=== PATIENT | male | born 1950 | race Caucasian/White ===

== ENCOUNTER 2020-03-02 21:06 | Inpatient (IN) | payer MEDICARE ==
[~2020-03-02] VITALS: Ht 200.7 cm; Wt 119.7 kg
[~2020-03-02 21:06] MED LIST: BACTRIM DS TAB1 EACH PO; CELEBREX 200 M200 MG PO; CIPROFLOXACIN500 M1 PO; COREG; FUROSEMIDE; GABAPENTIN; KLOR-CON; VICODIN
[2020-03-02 21:13] VITALS: BP 200/108
[2020-03-02 21:32] LABS: ABSOLUTE EOSINOPHILS 0.2 thou/uL (0.0-0.7); ABSOLUTE LYMPHOCYTES 0.8 thou/uL (0.8-5.3); ABSOLUTE MONOCYTES 0.7 thou/uL (0.0-1.2); ABSOLUTE NEUTROPHILS 3.6 thou/uL (1.6-8.1); BASOPHILS 0.8 %; EOSINOPHILS 3.9 %; HEMATOCRIT 39.8 % (42.0-52.0); HEMOGLOBIN 13.5 gm/dL (14.0-18.0); LYMPHOCYTES 15.2 %; MCH 34.7 pg (26.0-34.0); MCV 102.1 fL (80.0-100.0); MONOCYTES 13.3 %; MPV 7.6 fl. (7.2-11.1); NUCLEATED RBCS 0 /100WBC; PLATELET COUNT* 99 thou/uL (150-400); POLYS 66.8 %; RDW-CV 14.5 % (10.5-14.5); WBC 5.4 thou/uL (4.0-11.0)
[2020-03-02 21:42] LABS: CALCIUM 8.5 mg/dL (8.5-10.1); CREATININE 1.2 mg/dL (0.6-1.3); POTASSIUM 3.8 mmol/L (3.5-5.1)
[2020-03-02 21:46] LABS: APTT 26.1 Seconds (25.0-31.3); INR 1.1; PROTIME 11.4 Seconds (9.20-11.50)
[2020-03-02 21:53] LABS: ALBUMIN 2.7 g/dL (3.4-5.0); TOTAL BILIRUBIN 1.6 mg/dL (<0.1-1.0); TOTAL PROTEIN 7.2 g/dL (6.4-8.2)
[2020-03-03 00:14] LABS: URINE BILIRUBIN NEGATIVE (Negative); URINE BLOOD TRACE (Negative); URINE CLARITY CLEAR; URINE COLOR YELLOW; URINE GLUCOSE-RANDOM NEGATIVE (Negative); URINE KETONES NEGATIVE (Negative); URINE LEUKOCYTES-REFLEX NEGATIVE (Negative); URINE NITRITE-REFLEX NEGATIVE (Negative); URINE PROTEIN 2+ (Negative); URINE UROBILINOGEN 0.2 E.U./dl (0.2-1.0)
[2020-03-03 01:04] LABS: BACTERIA-REFLEX 1-9 Few /HPF (None Seen); CASTS None Seen /LPF (None Seen); SQUAMOUS 0-3 Few /LPF (0-3); URIC ACID CRYSTALS 4-10 Moderate /LPF (None Seen); URINE RBC 3-10 Few /HPF (0-2); URINE WBC-REFLEX 0-5 Rare /HPF (0-5)
[2020-03-03 02:02] VITALS: BP 173/93
[2020-03-03 04:00] VITALS: BP 164/59
[2020-03-03 07:45] VITALS: BP 150/65
--- NOTE | 2020-03-03 09:55 | EKG ---
[place] [address] ELECTROCARDIOGRAM REPORT Name: FATIMAH OME Room: [address] M.R.#: [id number] Admission: 03/03/20 Attend Phys: Omar Mckenna Discharge: Date of : 46 Date of Service: 03/02/202109 Report #: [id number] THIS REPORT FOR: //name// [facility] ED Test Date: 2020-03-02 Test Time: 21:10:43 Pat Name: FATIMAH MOE Department: Room: [facility] Gender: M Tight Rope Walker: ARMANDO : 1950 Requested By: Flor Dejesus Order Number: [id number] MD: Miguel Angel Cochran Measurements Intervals [place] Rate: 73 P: 50 TX: 206 QRS: 24 QRSD: 126 T: 64 QT: 433 QTc: 478 Interpretive Statements Sinus rhythm Atrial premature complex Probable left ventricular hypertrophy Borderline prolonged QT interval Compared to ECG 06/13/2009 07:40:00 Atrial premature complex(es) now present Electronically Signed On 03-03-2020 9:55:17 CDT by Miguel Angel Cochran [email or web address] <ELECTRONICALLY SIGNED> By: Miguel Angel Cochran MD, FACC 03/03/2055 09 09 Miguel Angel Cochran MD, FACC /EPI
--- NOTE | 2020-03-03 09:56 | EKG ---
[place] [address] ELECTROCARDIOGRAM REPORT Name: FATIMAH MOE [address] [id number] Admission: 03/03/20 Attend Phys: Omar Mckenna Discharge: Date of : 46 Date of Service: 03/03/20 0127 Report #: [id number] THIS REPORT FOR: //name// [facility] ED Test Date: 2020-03-03 Test Time: 01:27:44 Pat Name: FATIMAH MOE Department: Room: [facility] Gender: M [employer] Commissioner: MR : 1950 Requested By: Flor Dejesus Order Number: [id number] MD: Miguel Angel Cochran Measurements Intervals [place] Rate: 71 P: 20 DC: 177 QRS: 18 QRSD: 125 T: 15 QT: 449 QTc: 488 Interpretive Statements Sinus rhythm Baseline wander in lead(s) V5 Compared to ECG 03/02/2020 21:10:43 Atrial premature complex(es) no longer present Electronically Signed On 03-03-2020 9:56:50 CDT by Miguel Angel Cochran [email or web address] <ELECTRONICALLY SIGNED> By: Miguel Angel Cochran MD, [facility] 03/03/20 0956 6 Miguel Angel Cochran MD, [facility] /EPI
[2020-03-03 12:08] VITALS: BP 123/81
[2020-03-03 14:17] LABS: ABSOLUTE EOSINOPHILS 0.1 thou/uL (0.0-0.7); ABSOLUTE LYMPHOCYTES 0.5 thou/uL (0.8-5.3); ABSOLUTE MONOCYTES 0.4 thou/uL (0.0-1.2); ABSOLUTE NEUTROPHILS 2.1 thou/uL (1.6-8.1); BASOPHILS 0.8 %; EOSINOPHILS 3.6 %; HEMATOCRIT 33.7 % (42.0-52.0); HEMOGLOBIN 11.6 gm/dL (14.0-18.0); LYMPHOCYTES 14.8 %; MCH 35.4 pg (26.0-34.0); MCHC 34.5 g/dL (28.0-37.0); MCV 102.6 fL (80.0-100.0); MONOCYTES 12.7 %; NUCLEATED RBCS 0 /100WBC; PLATELET COUNT* 65 thou/uL (150-400); POLYS 68.1 %; RBC 3.28 mil/uL (4.50-6.00); RDW-CV 14.4 % (10.5-14.5); WBC 3.1 thou/uL (4.0-11.0)
[2020-03-03 14:26] LABS: CALCIUM 8.1 mg/dL (8.5-10.1); CREATININE 1.1 mg/dL (0.6-1.3); MAGNESIUM 1.9 mg/dL (1.8-2.4); PHOSPHORUS* 3.6 mg/dL (2.5-4.9); POTASSIUM 3.7 mmol/L (3.5-5.1)
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
--- NOTE | 2020-03-03 15:44 | 2DMMODE ---
[place] [address] 2 D/M-MODE ECHOCARDIOGRAM Name: FATIMAH MOE Room: [address] IN .R.#: [id number] Admission: 03/03/20 Attend Phys: Omar Mckenna Discharge: Date of : 46 Date of Service: 03/03/20 1544 Report #: [id number] THIS REPORT FOR: cc: FAM - No family physician/PCP FAM - No family physician/PCP Miguel Angel Cochran MD [facility] ~ ADDENDUM APPROVED REPORT Study performed: 03/03/2020 14:53:27 EXAM: Comprehensive 2D, Doppler, and color-flow Echocardiogram Patient Location: Bedside BSA: 2.56 HR: 64 bpm BP: 123/81 mmHg Other Information Study Quality: Adequate Indications Chest Pain 2D Dimensions IVSd: 13.74 (7-11mm) LVOT Diam: 26.15 (18-24mm) LVDd: 57.24 mm PWd: 17.72 (7-11mm) Ascending Ao: 37.88 (22-36mm) LVDs: 40.85 (25-40mm) Aortic Root: 37.30 mm Volumes Left Atrial Volume (Systole) LA ESV Index: 41.00 mL/m2 Aortic Valve AoV Peak Wesley.: 1.23 m/s AO Peak Gr.: 6.02 mmHg LVOT Max P.84 mmHg AO Mean Gr.: 3.94 mmHg LVOT Mean P.75 mmHg LVOT Max V: 0.98 m/s AO V2 VTI: 28.04 cm LVOT Mean V: 0.60 m/s OLGA (VTI): 4.61 cm2 LVOT V1 VTI: 24.05 cm Mitral Valve E/A Ratio: 1.15 [place] [address] 2 D/M-MODE ECHOCARDIOGRAM Name: FATIMAH MOE Room: [address] IN [facility]#: [id number] Admission: 03/03/20 Attend Phys: Omar Mckenna Discharge: Date of : 46 Date of Service: 03/03/20 1544 Report #: [id number] MV Decel. Time: 232.06 ms MV E Max Wesley.: 0.93 m/s MV PHT: 67.30 ms MVA (PHT): 3.27 cm2 TDI E/Lateral E': 9.30 E/Medial E': 7.15 Medial E' Wesley.: 0.13 m/s Lateral E' Wesley.: 0.10 m/s Pulmonary Valve PV Peak Wesley.: 0.81 m/s PV Peak Gr.: 2.62 mmHg Tricuspid Valve RAP Estimate: 5.00 mmHg TR Peak Gr.: 29.45 mmHg RVSP: 34.45 mmHg PA Pressure: 34.48 mmHg Left Ventricle The left ventricle is normal size. There is normal LV segmental wall motion. Mild concentric left ventricular hypertrophy. Left ventricular systolic function is normal. The left ventricular ejection fraction is within the normal range. LVEF is 55-60%. Right Ventricle Right ventricle is mildly dilated. The right ventricular systolic function is normal. Atria Left atrium is mildly dilated. The right atrium size is normal. Aortic Valve The Aortic valve is sclerotic. No aortic regurgitation is present. There is no aortic valvular stenosis. Mitral Valve The mitral valve is normal in structure. There is no mitral valve regurgitation noted. No evidence of mitral valve stenosis. Tricuspid Valve The tricuspid valve is normal in structure. Trace tricuspid regurgitation. estimated pa pressure 25 mm Hg Pulmonic Valve Pulmonic valve is not well visualized. There [place] [address] 2 D/M-MODE ECHOCARDIOGRAM Name: FATIMAH MOE Room: [address]#: [id number] Admission: 03/03/20 Attend Phys: Omar Mckenna Discharge: Date of : 46 Date of Service: 03/03/20 1544 Report #: [id number] regurgitation. Great Vessels The aortic root is normal in size. IVC is normal in size and collapses >50% with inspiration. Pericardium There is no pericardial effusion. <Conclusion> Mild concentric left ventricular hypertrophy. LVEF is 55-60%. Left atrium is mildly dilated. The Aortic valve is sclerotic. Trace tricuspid regurgitation. estimated pa pressure 35 mm Hg <ELECTRONICALLY SIGNED> By: Miguel Angel Cochran MD, FACC 03/03/20 1544 1544 1544 Miguel Angel Cochran MD, FACC /INF
[2020-03-03 16:36] VITALS: BP 152/61
[2020-03-03 18:33] LABS: CALCIUM 8.4 mg/dL (8.5-10.1); CREATININE 1.2 mg/dL (0.6-1.3); POTASSIUM 4.2 mmol/L (3.5-5.1)
[2020-03-03 18:37] LABS: ALBUMIN 2.9 g/dL (3.4-5.0); TOTAL BILIRUBIN 2.5 mg/dL (<0.1-1.0); TOTAL PROTEIN 7.3 g/dL (6.4-8.2)
[2020-03-03 20:00] VITALS: BP 146/62
[2020-03-04] VITALS (7 sets, daily range): BP systolic 121–188; BP diastolic 68–91
[2020-03-04 05:16] LABS: HEMATOCRIT 38.5 % (42.0-52.0); MCH 34.8 pg (26.0-34.0); MCHC 33.8 g/dL (28.0-37.0); MCV 102.9 fL (80.0-100.0); MPV 8.1 fl. (7.2-11.1); NUCLEATED RBCS 0 /100WBC; PLATELET COUNT* 66 thou/uL (150-400); RBC 3.74 mil/uL (4.50-6.00); RDW-CV 14.1 % (10.5-14.5); WBC 3.8 thou/uL (4.0-11.0)
[2020-03-04 05:34] LABS: ALBUMIN 2.5 g/dL (3.4-5.0); CALCIUM 8.2 mg/dL (8.5-10.1); CREATININE 1.3 mg/dL (0.6-1.3); POTASSIUM 4.2 mmol/L (3.5-5.1); TOTAL BILIRUBIN 2.2 mg/dL (<0.1-1.0)
[2020-03-04 07:39] LABS: ABSOLUTE LYMPHOCYTES 0.4 thou/uL (0.8-5.3); ABSOLUTE NEUTROPHILS 3.4 thou/uL (1.6-8.1); PLATELET ESTIMATE DECREASED
[2020-03-04 14:13] LABS: APTT 24.2 Seconds (25.0-31.3); INR 1.2; PROTIME 12.4 Seconds (9.20-11.50)
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
[2020-03-05] VITALS (7 sets, daily range): BP systolic 172–199; BP diastolic 84–98
[2020-03-05 02:06] LABS: GLYCOHEMOGLOBIN (HGB A1C) 6.1 % (4.8-5.6)
[2020-03-05 04:28] LABS: ABSOLUTE BASOPHILS 0.1 thou/uL (0.0-0.2); ABSOLUTE LYMPHOCYTES 0.7 thou/uL (0.8-5.3); ABSOLUTE MONOCYTES 0.6 thou/uL (0.0-1.2); ABSOLUTE NEUTROPHILS 5.4 thou/uL (1.6-8.1); EOSINOPHILS 0.5 %; HEMATOCRIT 35.9 % (42.0-52.0); HEMOGLOBIN 12.2 gm/dL (14.0-18.0); LYMPHOCYTES 10.3 %; MCH 34.6 pg (26.0-34.0); MCHC 34.1 g/dL (28.0-37.0); MCV 101.4 fL (80.0-100.0); MPV 8.1 fl. (7.2-11.1); NUCLEATED RBCS 0 /100WBC; PLATELET COUNT* 80 thou/uL (150-400); POLYS 79.2 %; RBC 3.54 mil/uL (4.50-6.00); RDW-CV 14.4 % (10.5-14.5); WBC 6.8 thou/uL (4.0-11.0)
[2020-03-05 05:00] LABS: ALBUMIN 2.5 g/dL (3.4-5.0); CALCIUM 8.2 mg/dL (8.5-10.1); CREATININE 1.1 mg/dL (0.6-1.3); MAGNESIUM 2.1 mg/dL (1.8-2.4); POTASSIUM 3.8 mmol/L (3.5-5.1); TOTAL BILIRUBIN 2.2 mg/dL (<0.1-1.0); TOTAL PROTEIN 6.8 g/dL (6.4-8.2)
[2020-03-06] VITALS: BP 179/87
[2020-03-06 04:24] VITALS: BP 159/69
[2020-03-06 04:35] LABS: ABSOLUTE EOSINOPHILS 0.1 thou/uL (0.0-0.7); ABSOLUTE LYMPHOCYTES 0.6 thou/uL (0.8-5.3); ABSOLUTE MONOCYTES 0.7 thou/uL (0.0-1.2); ABSOLUTE NEUTROPHILS 3.2 thou/uL (1.6-8.1); BASOPHILS 0.6 %; EOSINOPHILS 1.5 %; HEMATOCRIT 36.9 % (42.0-52.0); HEMOGLOBIN 12.7 gm/dL (14.0-18.0); LYMPHOCYTES 14.1 %; MCH 34.7 pg (26.0-34.0); MCHC 34.3 g/dL (28.0-37.0); MCV 100.9 fL (80.0-100.0); MONOCYTES 14.5 %; MPV 7.5 fl. (7.2-11.1); NUCLEATED RBCS 0 /100WBC; PLATELET COUNT* 65 thou/uL (150-400); POLYS 69.3 %; RBC 3.66 mil/uL (4.50-6.00); RDW-CV 14.2 % (10.5-14.5); WBC 4.6 thou/uL (4.0-11.0)
[2020-03-06 05:29] LABS: ALBUMIN 2.5 g/dL (3.4-5.0); CALCIUM 8.4 mg/dL (8.5-10.1); CREATININE 1.1 mg/dL (0.6-1.3); MAGNESIUM 1.8 mg/dL (1.8-2.4); POTASSIUM 3.7 mmol/L (3.5-5.1); TOTAL BILIRUBIN 3.4 mg/dL (<0.1-1.0); TOTAL PROTEIN 6.6 g/dL (6.4-8.2)
[2020-03-06 08:00] VITALS: BP 170/77
[2020-03-06] MEDS ORDERED: AMOX TR-K CLV1 EAC3 PO (09:01)
[2020-03-06] MEDS ORDERED: CARVEDILOL12.5 MG PO (09:01)
[2020-03-06] MEDS ORDERED: XIFAXAN550 M1 PO (09:01)
[2020-03-06] MEDS ORDERED: LACTULOSE20 GM/30 M PO (09:01)
[2020-03-06] MEDS ORDERED: FLORASTOR250 MG PO (09:01)
[2020-03-06] MEDS ORDERED: NEURONTIN 300M300 M2 PO (09:01)
[2020-03-06] MEDS ORDERED: LISINOPRIL5 MG PO (09:01)
[2020-03-06] MEDS ORDERED: SPIRONOLACTONE25 MG PO (09:01)
[2020-03-06] MEDS ORDERED: OXYCODONE HCL 55 MG PO (09:01)
[2020-03-06] MEDS ORDERED: LASIX 40 MG TAB40 M1 PO (09:01)
[2020-03-06] MEDS ORDERED: LIDOPATCH1 EACH TOP (09:01)
[2020-03-06 12:00] VITALS: BP 169/76
[2020-03-06 14:43] VITALS: BP 170/77
== END 2020-03-06 15:50 | disposition home or self-care (01) | DRG 177 ==
LOC: M.ERS 21:06 → M.TBA-ER 03-03 00:31 → M.2W 03-03 01:52
PROVIDERS: Internal Medicine; Internal Medicine Critical Care Medicine; Personal Emergency Response Attendant; ADMIT Family Medicine; ATTEND Family Medicine
DX: J15.6 Pneumonia due to other Gram-negative bacteria (principal); I26.99 Other pulmonary embolism without acute cor pulmonale; I50.32 Chronic diastolic (congestive) heart failure; R65.10 Systemic inflammatory response syndrome (SIRS) of non-infectious origin without acute organ dysfunction; E44.0 Moderate protein-calorie malnutrition; I42.9 Cardiomyopathy, unspecified; R18.8 Other ascites; K76.6 Portal hypertension; Z20.828 Contact with and (suspected) exposure to other viral communicable diseases; F12.90 Cannabis use, unspecified, uncomplicated; E78.5 Hyperlipidemia, unspecified; K74.60 Unspecified cirrhosis of liver; I11.0 Hypertensive heart disease with heart failure; R16.2 Hepatomegaly with splenomegaly, not elsewhere classified; E11.40 Type 2 diabetes mellitus with diabetic neuropathy, unspecified; K80.80 Other cholelithiasis without obstruction; D75.82 Heparin induced thrombocytopenia (HIT); K72.90 Hepatic failure, unspecified without coma; Z85.46 Personal history of malignant neoplasm of prostate; Z87.891 Personal history of nicotine dependence; Z83.3 Family history of diabetes mellitus; Z79.82 Long term (current) use of aspirin; Z79.899 Other long term (current) drug therapy; Z68.29 Body mass index [BMI] 29.0-29.9, adult